=== PATIENT | male | born 1960 | race African-American/Black ===

== ENCOUNTER 2016-12-06 09:06 | Inpatient (IN) | payer OTHER, BC ==
[2016-11-18 11:19] VITALS: BMI 40.5
--- NOTE | 2016-12-06 07:34 | HP ---
Admitting History and Physical - Admission Chief Complaint: Right hip osteoarhritis x years History of Present Illness: 56 year old male presents in regard to his right hip. Longstanding history of right hip osteoarthritis. Patient continues to complain of pain, difficulty ambulating and limited ROM. Patient has failed all conservative treatment including PO medication, activity modification and an exercise program. At this point, patient would like to proceed with a right total hip arthroplasty ( MAKOplasty). History Source: Patient - Past Medical History Musculoskeletal: Yes: Osteoarthritis - Past Surgical History Additional Past Surgical History: See written H&P. - Smoking History Smoking history: Never smoked - Alcohol/Substance Use Hx Alcohol Use: No Home Medications - Allergies Allergies/Adverse Reactions: Allergies Allergy/AdvReac Type Severity Reaction Status Date / Time No Known Allergies Allergy Verified 11/18/16 11:13 - Home Medications Home Medications: Ambulatory Orders Oxycodone HCl [Roxicodone -] 5 mg PO Q8H PRN 11/18/16 Review of Systems - Review of Systems Musculoskeletal: reports: Decreased ROM (Right hip), Joint Pain (Right hip) Physical Examination Constitutional: Yes: Well Nourished, No Distress Eyes: Yes: Conjunctiva Clear HENT: Yes: Atraumatic, Normocephalic Neck: Yes: Supple Cardiovascular: Yes: Regular Rate and Rhythm Respiratory: Yes: Regular Gastrointestinal: Yes: Soft ...Rectal Exam: Yes: Deferred Musculoskeletal: Yes: Joint Stiffness (Right hip) Assessment/Plan 56 year old male presenting in regard to his right hip. Patient continues to complain of pain, limited ROM and difficulty ambulating. Patient has failed all conservative treatment. Proceed with a right total hip arthroplasty (MAKOplasty) .
[2016-12-06] MEDS ORDERED: ROPIVICAINE 0.2%/MORPH PF/KETOROLAC - 51ML DISP.SYRINGE IA ONE (09:33)
[2016-12-06] MEDS ORDERED: CEFAZOLIN 2 GM in DEXTROSE 5%-WATER - 50 ML IVPB ONE (09:33)
[2016-12-06] MEDS ORDERED: TRANEXAMIC ACID 1000 MG/10 ML VIAL IVPUSH ONE (09:33)
[2016-12-06] MEDS: CELECOXIB 200 MG CAPSULE PO ONE ×2 (09:40→17:19)
[2016-12-06] MEDS: oxyCODONE HCL 10 MG SUSTAINED ACTING TABLET PO ONE ×2 (09:40→17:19)
[2016-12-06] MEDS: GABAPENTIN 300 MG CAPSULE (FP) PO ONE ×2 (09:40→17:19)
[2016-12-06] MEDS ORDERED: ROPIVACAINE HCL 0.5% 30ML VIAL ONE (09:51)
[2016-12-06] MEDS ORDERED: DEXAMETHASONE SOD PHOSPHATE/PF 10 MG/ML SDV ONE (09:51)
[2016-12-06] MEDS ORDERED: SODIUM CHLORIDE 0.9% P/F 10 ML VIAL IJ ONE (09:51)
[2016-12-06] MEDS ORDERED: MIDAZOLAM HCL 2 MG/2 ML SINGLE DOSE VIAL ONE ×2 (09:51→13:18)
[2016-12-06] MEDS ORDERED: PROPOFOL 20 ML ONE ×7 (09:56→15:28)
[2016-12-06] MEDS ORDERED: ceFAZolin SODIUM 1 GM VIAL ONE (11:25)
[2016-12-06] MEDS ORDERED: ePHEDrine SULFATE 50 MG/1 ML AMPULE ONE (11:28)
[2016-12-06] MEDS ORDERED: TRANEXAMIC ACID 1000 MG/10 ML VIAL ONE ×2 (13:45→14:20)
[2016-12-06] MEDS ORDERED: ONDANSETRON 4 MG/2 ML VIAL ONE ×2 (14:09→16:42)
[2016-12-06] MEDS ORDERED: ONDANSETRON 4 MG/2 ML VIAL IVPB PRN (15:52)
[2016-12-06] MEDS ORDERED: MAGNESIUM HYDROX 2400MG/30ML ORAL SUSPENSION 30 ML CUP PO PRN (15:52)
[2016-12-06] MEDS ORDERED: MAG HYDROX/AL HYDROX/SIMETH 30 ML UNIT-DOSE CUP PO PRN (15:52)
--- NOTE | 2016-12-06 15:52 | OP ---
Operative Note - Note: Operative Date: 12/06/16 Pre-Operative Diagnosis: right hip OA Operation: right CARLEEN Post-Operative Diagnosis: Same as Pre-op Surgeon: Warren Hope Licensed Psychologist Director: Ese Steele Anesthesia: Spinal Estimated Blood Loss (mls): 350
[2016-12-06] MEDS ORDERED: PANTOPRAZOLE 40 MG TABLET (FP) PO ONE (15:58)
[2016-12-06] MEDS ORDERED: LACTATED RINGERS SOLUTION 1,000 ML IV SCH (16:00)
[2016-12-06] MEDS ORDERED: oxyCODONE HCL 5 MG TABLET PO PRN (16:23)
[2016-12-06] MEDS ORDERED: traMADol HCL 50 MG TABLET PO ONE (16:45)
[2016-12-06] MEDS ORDERED: KETOROLAC TROMETHAMINE 30 MG/1 ML VIAL IVPUSH ONE (16:45)
[2016-12-06] MEDS ORDERED: ONDANSETRON 4 MG/2 ML VIAL IVPUSH ONE (16:45)
[2016-12-06] MEDS ORDERED: KETOROLAC TROMETHAMINE 30 MG/1 ML VIAL ONE (16:45)
[2016-12-06] MEDS ORDERED: traMADol HCL 50 MG TABLET ONE (16:46)
[2016-12-06] MEDS: traMADol HCL 50 MG TABLET PO SCH ×2 (17:20→21:21)
[2016-12-06] MEDS: KETOROLAC TROMETHAMINE 30 MG/1 ML VIAL IVPUSH SCH ×2 (17:20→21:23)
[2016-12-06] MEDS: ACETAMINOPHEN 325 MG TABLET (FP) PO SCH ×2 (18:04→21:33)
[2016-12-06] MEDS: CEFAZOLIN 2 GM/D5W 50 ML IVPB SCH (18:16)
[2016-12-06] MEDS: oxyCODONE HCL 5 MG TABLET PO PRN (19:50)
[2016-12-06] MEDS: GABAPENTIN 300 MG CAPSULE (FP) PO SCH ×2 (21:20→21:32)
[2016-12-06] MEDS: oxyCODONE HCL 10 MG SUSTAINED ACTING TABLET PO SCH (21:21)
[2016-12-06] MEDS: CELECOXIB 200 MG CAPSULE PO SCH (21:21)
[2016-12-06] MEDS: ASCORBIC ACID 500 MG TABLET (FP) PO SCH (21:21)
[2016-12-06] MEDS: SENNOSIDES/DOCUSATE COMBO (SENNA PLUS) TABLET (UD) PO SCH (21:21)
[2016-12-07] MEDS: oxyCODONE HCL 5 MG TABLET PO PRN ×4 (00:45→19:41)
[2016-12-07] MEDS: CEFAZOLIN 2 GM/D5W 50 ML IVPB SCH (03:17)
[2016-12-07] MEDS: KETOROLAC TROMETHAMINE 30 MG/1 ML VIAL IVPUSH SCH ×2 (04:23→09:48)
[2016-12-07] MEDS: ACETAMINOPHEN 325 MG TABLET (FP) PO SCH ×4 (04:24→22:00)
[2016-12-07] MEDS: traMADol HCL 50 MG TABLET PO SCH ×4 (04:24→21:21)
[2016-12-07 08:49] LABS: MCH 28.6 pg (25.7-33.7); MCHC 33.1 g/dl (32.0-35.9); MEAN CELL VOLUME 86.4 fl (80-96); MEAN PLT VOLUME 9.9 fl (7.5-11.1); PLATELET COUNT 158 K/MM3 (134-434); RDW 13.2 % (11.9-15.9); WHITE BLOOD COUNT 7.7 K/mm3 (4.0-10.8)
[2016-12-07 08:57] LABS: ANION GAP 8 (8-16); CALCIUM 8.4 mg/dl (8.4-10.2); CO2 26 mmol/L (22-28); CREATININE 1.3 mg/dl (0.6-1.3); GLUCOSE,RANDOM 108 mg/dl (74-106)
[2016-12-07 09:13] LABS: COCKROFT - GAULT NT
[2016-12-07] MEDS: oxyCODONE HCL 10 MG SUSTAINED ACTING TABLET PO SCH ×2 (09:48→21:22)
[2016-12-07] MEDS: MULTIVITAMINS (DAILY MVI) TABLET (FP) PO SCH (09:48)
[2016-12-07] MEDS: PANTOPRAZOLE 40 MG TABLET (FP) PO SCH (09:48)
[2016-12-07] MEDS: GABAPENTIN 300 MG CAPSULE (FP) PO SCH ×4 (09:48→21:20)
[2016-12-07] MEDS: ASPIRIN 325 MG TABLET PO SCH (09:48)
[2016-12-07] MEDS: SENNOSIDES/DOCUSATE COMBO (SENNA PLUS) TABLET (UD) PO SCH ×2 (09:48→21:21)
[2016-12-07] MEDS: CELECOXIB 200 MG CAPSULE PO SCH ×2 (09:48→21:20)
[2016-12-07] MEDS: ASCORBIC ACID 500 MG TABLET (FP) PO SCH ×2 (09:49→21:20)
--- NOTE | 2016-12-07 11:50 | PN ---
Progress Note, Physician Chief Complaint: s/p right total hip replacement CINDY under spinal anesthesia History of Present Illness: post op day one, with peripheral nerve block single shot for post op pain control - Current Medication List Current Medications: Active Medications Acetaminophen (Tylenol -) 650 mg PO Q6H [facility] Stop: 12/09/16 16:29 Last Admin: 12/07/16 09:49 Dose: 650 mg Al Hydroxide/Mg Hydroxide (Mylanta Oral Suspension -) 30 ml PO Q4H PRN PRN Reason: DYSPEPSIA Ascorbic Acid (Vitamin C -) 500 mg PO BID [facility] Last Admin: 12/07/16 09:49 Dose: 500 mg Aspirin (Asa -) 325 mg PO DAILY@0800 [facility] Last Admin: 12/07/16 09:48 Dose: 325 mg Celecoxib (Celebrex -) 200 mg PO BID [facility] Last Admin: 12/07/16 09:48 Dose: 200 mg Gabapentin (Neurontin -) 300 mg PO BID [facility] Stop: 12/09/16 21:59 Last Admin: 12/07/16 09:48 Dose: 300 mg Gabapentin (Neurontin -) 300 mg PO BID [facility] Last Admin: 12/07/16 09:48 Dose: 300 mg Magnesium Hydroxide (Milk Of Magnesia -) 30 ml PO PRN PRN PRN Reason: CONSTIPATION Multivitamins/Minerals/Vitamin C (Tab-A-Vit -) 1 tab PO DAILY [facility] Last Admin: 12/07/16 09:48 Dose: 1 tab Ondansetron HCl (Zofran Injection) 4 mg IVPB Q6H PRN PRN Reason: NAUSEA Oxycodone HCl (Oxycontin -) 10 mg PO BID [facility] Stop: 12/09/16 16:24 Last Admin: 12/07/16 09:48 Dose: 10 mg Oxycodone HCl (Roxicodone -) 5 mg PO Q3H PRN PRN Reason: PAIN LEVEL 1-5 Oxycodone HCl (Roxicodone -) 10 mg PO Q3H PRN PRN Reason: PAIN LEVEL 6-10 Last Admin: 12/07/16 06:15 Dose: 10 mg Pantoprazole Sodium (Protonix -) 40 mg PO DAILY [facility] Last Admin: 12/07/16 09:48 Dose: 40 mg Senna/Docusate Sodium (Pericolace -) 1 tablet PO BID [facility] Last Admin: 12/07/16 09:48 Dose: 1 tablet Tramadol HCl (Ultram -) 50 mg PO Q6H [facility] Last Admin: 12/07/16 09:49 Dose: 50 mg - Objective Vital Signs: Vital Signs Temperature 98.4 F 12/07/16 06:14 Pulse Rate 72 12/07/16 06:14 Respiratory Rate 18 12/07/16 09:00 Blood Pressure 128/61 12/07/16 06:14 O2 Sat by Pulse Oximetry (%) 95 12/07/16 09:00 Constitutional: Yes: Well Nourished Cardiovascular: Yes: WNL Respiratory: Yes: WNL Gastrointestinal: Yes: WNL Labs: CBC, BMP 12/07/16 07:28 12/07/16 07:28 Assessment/Plan no anesthetic complications, pain is under control, no nausea, dept of anesthesia will sign off care at this time
--- NOTE | 2016-12-07 20:09 | PN ---
Progress Note (short form) - Note Progress Note: Pt seen and examined. Doing excellent today. AVSS Selected Entries 12/07/16 18:00 Temperature 98.4 F Pulse Rate 76 Respiratory 18 Rate Blood Pressure 114/62 Laboratory Tests 12/07/16 12/07/16 07:28 07:28 WBC 7.7 Hgb 12.4 Hct 37.4 Plt Count 158 Sodium 138 Potassium 4.2 Chloride 104 Carbon Dioxide 26 Anion Gap 8 BUN 15 Creatinine 1.3 Random Glucose 108 H Calcium 8.4 Gen: NAD RLE: c/d/i, NVID A/P 56yo male POD#1 s/p R CARLEEN 1. PT/OOB - WBAT RLE 2. D/C home tomorrow
[2016-12-08] MEDS: ACETAMINOPHEN 325 MG TABLET (FP) PO SCH ×2 (05:00→10:30)
[2016-12-08] MEDS: traMADol HCL 50 MG TABLET PO SCH ×2 (05:00→09:18)
[2016-12-08] MEDS: oxyCODONE HCL 5 MG TABLET PO PRN ×2 (06:21→13:24)
[2016-12-08 06:23] VITALS: BP 106/69; PULSE 80; TEMP 98.3
[2016-12-08 08:16] LABS: MCH 29.4 pg (25.7-33.7); MCHC 33.7 g/dl (32.0-35.9); MEAN CELL VOLUME 87.1 fl (80-96); MEAN PLT VOLUME 9.8 fl (7.5-11.1); PLATELET COUNT 151 K/MM3 (134-434); RDW 13.4 % (11.9-15.9); WHITE BLOOD COUNT 9.5 K/mm3 (4.0-10.8)
[2016-12-08] MEDS: ASPIRIN 325 MG TABLET PO SCH (08:37)
[2016-12-08] MEDS: ASCORBIC ACID 500 MG TABLET (FP) PO SCH (09:18)
[2016-12-08] MEDS: oxyCODONE HCL 10 MG SUSTAINED ACTING TABLET PO SCH (09:19)
[2016-12-08] MEDS: GABAPENTIN 300 MG CAPSULE (FP) PO SCH ×2 (09:19→09:21)
[2016-12-08] MEDS: CELECOXIB 200 MG CAPSULE PO SCH (09:19)
[2016-12-08] MEDS: MULTIVITAMINS (DAILY MVI) TABLET (FP) PO SCH (09:19)
[2016-12-08] MEDS: PANTOPRAZOLE 40 MG TABLET (FP) PO SCH (09:21)
[2016-12-08] MEDS: SENNOSIDES/DOCUSATE COMBO (SENNA PLUS) TABLET (UD) PO SCH (09:23)
--- NOTE | 2016-12-08 11:30 | DS ---
Physical Examination Vital Signs: Vital Signs Temperature 98.3 F 12/08/16 06:00 Pulse Rate 80 12/08/16 06:00 Respiratory Rate 19 12/08/16 07:46 Blood Pressure 106/69 12/08/16 06:00 O2 Sat by Pulse Oximetry (%) 94 L 12/08/16 07:46 Labs: CBC, BMP 12/08/16 07:40 12/07/16 07:28 Discharge Summary Reason For Visit: RIGHT HIP OSTEOARTHRITIS Current Active Problems Primary osteoarthritis of right hip (Acute) Procedures: Principal: right hip replacement Hospital Course: Admitted for elective surgery. Procedure performed without complications. Pt received postoperative antibiotic prophylaxis and DVT ppx. Ambulated with physical therapy. Stable for discharge home with outpatient followup. Condition: Stable - Instructions Diet, Activity, Other Instructions: Dr Hope - Hip Replacement Instructions Keep the Aquacel dressing on until removed by Dr. Hope in 10-14 days - it is antibacterial and waterproof and you can shower with it on. Call the office for a follow-up appointment with Dr. Hope in 10-14 days. Take one Aspirin 325mg daily for 6 weeks to prevent blood clots in your legs. Take one Pantoprazole 40mg daily for 6 weeks to protect against heartburn and ulcers. Take Celebrex 200mg twice daily for 30 days to reduce swelling and inflammation. Take a stool softener daily to prevent constipation. Take a multivitamin and vitamin C supplement daily to aid wound healing. For pain: *Mild pain (1-3/10): Take 1 Tramadol tablet every 4 hours as needed. Moderate pain (4-6/10): Take 1 Tramadol tablet and 1 Percocet tablet every 4 hours as needed. Severe pain (7-10/10): Take 1 Tramadol tablet and 2 Percocet tablets every 4 hours as needed. Activity: You can put as much weight on the operative leg as you want. For the first 6 weeks, all you need to do is walk around the house, go up/down stairs, and sit down/get up. After 6 weeks when everything is healed (and bone has grown into the implant) you will be sent for more intensive outpatient physical therapy. Always use a walker or cane for balance and to prevent falls. Disposition: VNS/HOME HEALTH CARE - Home Medications Comprehensive Discharge Medication List: Ambulatory Orders Ascorbic Acid [Vitamin C -] 500 mg PO BID tablet 12/08/16 Aspirin [ASA -] 325 mg PO DAILY@0800 tablet 12/08/16 Celecoxib [CeleBREX -] 200 mg PO BID #60 tab 12/08/16 Multivitamins [Multivit ([facility] Formulary)] 1 tab PO DAILY tab 12/08/16 Oxycodone HCl/Acetaminophen [Percocet 10-325 mg Tablet] 1 - 2 each PO Q4H PRN # 60 tablet MDD 8 12/08/16 Pantoprazole Sodium [Protonix -] 40 mg PO DAILY #40 tab 12/08/16 Sennosides/Docusate Sodium [Pericolace -] 1 tablet PO BID tablet 12/08/16 Tramadol HCl [Ultram -] 50 mg PO Q4H PRN #90 tablet MDD 6 12/08/16
--- NOTE | 2016-12-08 12:46 | PN ---
Progress Note (short form) - Note Progress Note: Pt seen and examinedthis AM. Doing excellent today. AVSS Selected Entries 12/07/16 12/08/16 22:25 06:00 Temperature 98.3 F Pulse Rate 80 Respiratory 19 Rate Blood Pressure 106/69 O2 Sat by Pulse 98 94 L Oximetry (%) Oxygen Delivery Room Air Room Air Method Laboratory Tests 12/07/16 12/08/16 07:28 07:40 WBC 9.5 Hgb 11.9 Hct 35.3 L Plt Count 151 Sodium 138 Potassium 4.2 Chloride 104 Carbon Dioxide 26 Anion Gap 8 BUN 15 Creatinine 1.3 Random Glucose 108 H Calcium 8.4 Gen: NAD RLE: c/d/i, NVID A/P 56yo male POD#2 s/p R CARLEEN 1. PT/OOB - WBAT RLE 2. D/C home today
--- NOTE | 2016-12-09 17:06 | SPEC ---
DATE OF OPERATION: 12/06/2016 PREOPERATIVE DIAGNOSIS: Right hip osteoarthritis. POSTOPERATIVE DIAGNOSIS: Right hip osteoarthritis. PROCEDURE: Right total hip replacement with MAKOplasty robotic navigation. ATTENDING: Angie Cameron MD NIGHT FILLER: YEIMY Alfaro ANESTHESIA: Spinal plus sedation. ESTIMATED BLOOD LOSS: 350 mL. COMPLICATIONS: None. DISPOSITION: The patient was transferred to the PACU in stable condition. SPECIMENS: Resected bone was sent for pathology analysis. IMPLANTS USED: Erlin Accolade 2 size 6 femoral component, 56-mm Tritanium acetabular component, MDM head ball with inner ceramic +4 head. INDICATIONS: This is a 56-year-old male with long-standing history of right hip and groin pain. He had severe disability and ambulatory dysfunction because of this, and had been diagnosed with severe right hip osteoarthritis. He had failed nonoperative management with injections, medications, and physical therapy, and was indicated for a right total hip replacement. The risks, benefits and alternatives to the procedure were explained to the patient in great detail and he elected to proceed with the surgery. On the day of surgery, the patient was taken to the operating room and placed on the OR table. Spinal anesthesia was administered by the anesthesiologist. The patient was then positioned in the lateral decubitus position on the table and all bony prominences were padded. An axillary roll was placed. The operative hip was then prepped and draped in the usual sterile fashion and intravenous antibiotics were given for infection prophylaxis. A surgical time-out was then performed with the team, and the patients identity, procedure, side, availability of implants, and the administration of antibiotics was confirmed. An approximately 15cm longitudinal incision was made through the skin centered on the greater trochanter of the hip. This dissection was carried down through the subcutaneous tissues to the deep fascia. This fascia was then incised and a cobra was placed around the inferior femoral neck. Electrocautery was used to reflect the anterior 40% of the gluteus medius and minimus starting at the musculotendinous junction and leaving a cuff for closure. This was reflected to reveal the capsule of the hip joint. An anterior capsulectomy was performed and the femoral head and neck was visualized. Grade 4 changes were noted diffusely throughout the joint. At this point, three small stab incisions were made superior to the main incision along the iliac crest. Three self-drilling Thu pins were then placed and the Oneil pelvic array was attached. Reference points on the limb were then entered into the robotic device and the limb length deficiency, offset, and femoral neck resection level were then calculated by the software. The hip was then dislocated with traction and external rotation, an oscillating saw was used to make the femoral neck cut at the level previously templated, and the femoral head was removed. Attention was then turned to the acetabulum. Retractors were then placed around the acetabulum and the labrum was removed. An acetabular checkpoint pin and the SafeNet software was used to register the contours of the acetabulum. The acetabulum was then reamed in a single stage to the preoperatively templated size using the SafeNet robotic arm. The appropriately sized cup was then impacted and had solid fixation as well as the preset inclination and version of 40 and 20 degrees, respectively. A polyethylene liner was then placed in the cup. Attention was then turned back to the femur, which was externally rotated for improved visualization. A femoral neck elevator was used to present the femoral neck cut, a box osteotome was used to enter the femoral canal, and a canal finder was used to go down the femoral shaft. The Oneil broaches were used sequentially until the optimal scratch fit was achieved. This correlated to the preoperatively templated size. From here, several different offset head and neck configurations were tested until excellent stability and length was obtained. These measurements were quantified using the SafeNet software. All trial components were then removed, the femur was copiously irrigated, and the final components were placed. Leg length and stability were checked again and found to be excellent. Irrigation was performed again. Wound closure was started by repairing the abductor muscles with a No. 2 Fiberwire stitch in a [place] configuration passed through bone tunnels in the greater trochanter and tied over a bony bridge. This repair was then reinforced with a 0 VLoc 180 barbed suture. Next, No. 1 Polysorb and 0 VLoc 180 was used to close the fascia. The deep subcutaneous tissue was closed with No. 1 Polysorb sutures, and 2-0 Polysorb was used for the superficial subcutaneous tissue. The skin was closed using both 3-0 VLoc 90 suture in a running subcuticular fashion and SwiftSet skin adhesive. The Oneil array and pins were removed from the iliac crest and the stab incision sites were irrigated and closed with 4-0 Polysorb sutures and SwiftSet skin adhesive. Once this was completed a sterile dressing was applied. The patient was then awakened and taken to the PACU in stable condition. ANGIE CAMERON M.D. [facility]/[id number]
--- NOTE | 2016-12-15 11:18 | PATH ---
Surgical Pathology Report Patient Name: LESLIE DAMON Med. Rec. #: [id number] /Age/Gender: 1960 (Age: 56) / M Account: [id number] Location: [facility] Taken: 12/06/2016 Received: 12/06/2016 Reported: 12/09/2016 Physicians: Warren Hope M.D. Specimen(s) Received RIGHT FEMORAL HEAD Clinical History Right hip primary osteoarthritis Final Diagnosis FEMORAL HEAD, RIGHT, TOTAL HIP REPLACEMENT: DEGENERATIVE JOINT DISEASE. Electronically Signed Anai Pisano M.D. Gross Description Received in formalin, labeled "right femoral head," is a 5.1 x 5.1 x 4.6 cm. femoral head with a 1.4 cm in length portion of femoral neck attached. The margin of resection is smooth. There is a 4.6 cm in greatest dimension area of eburnation present. The remaining articular surface is bhatia-yellow and diffusely nodular and granular. The underlying trabecular bone is yellow and hard. A enrollment representative section is submitted in one cassette, following decalcification. [facility]
== END 2016-12-08 14:15 | disposition home health service (06) | DRG 470 ==
LOC: FM/S 09:06
PROVIDERS: ADMIT Student in an Organized Health Care Education/Training Program; ATTEND Student in an Organized Health Care Education/Training Program
PROC: 8E0W0CZ Robotic Assisted Procedure of Trunk Region, Open Approach (ICD-10-PCS; 2016-12-06)
PROC: 0SR903A Replacement of Right Hip Joint with Ceramic Synthetic Substitute, Uncemented, Open Approach (ICD-10-PCS; principal; 2016-12-06 12:20)
DX: M16.11 Unilateral primary osteoarthritis, right hip (principal); Z68.41 Body mass index [BMI] 40.0-44.9, adult; E66.01 Morbid (severe) obesity due to excess calories
CPT/HCPCS: 36415; 73523-TC; 80048; 85027; 88304-TC; 88311-TC; 94010; 94760; 97116-GP; 97162-GP